=== PATIENT | female | born 1995 | race African-American/Black ===

== ENCOUNTER 2018-02-28 09:51 | Emergency (ER) | payer OTHER ==
[2018-02-28 10:31] LABS: Urine Blood NEGATIVE (NEG); Urine Glucose NEGATIVE (NEG); Urine Protein NEGATIVE (NEG); Urine Specific Gravity >1.030 (1.005-1.030)
[2018-02-28 11:05] LABS: Absolute Lymphocytes (CBC) 1.8 K/uL (0.7-4.9); Absolute Monocytes 0.3 K/uL (0.1-1.3); Absolute Neutrophil 2.3 K/uL (1.8-8.0); Basophils % 0.8 % (0-1.3); Eosinophils % 1.3 % (0-4.4); Hematocrit 37.7 % (36.0-45.0); Lymphocytes % 39.8 % (15.3-44.8); MCH 25.4 pg (27.0-35.0); MCV 75.9 fL (80-100); MPV 8.5 fL (7.6-11.3); Monocytes % 6.8 % (3.3-12.3); RBC Red Blood Cell Count 4.97 M/uL (3.86-4.86)
[2018-02-28 11:21] LABS: ALT/SGPT 16 U/L (12-78); AST/SGOT 12 U/L (15-37); Albumin 3.8 g/dL (3.4-5.0); Alkaline Phosphatase 44 U/L (45-117); BUN Blood Urea Nitrogen 7 mg/dL (7-18); Bicarbonate 24 mmol/L (21-32); Bilirubin Direct 0.1 mg/dL (0-0.2); Bilirubin Total 0.3 mg/dL (0.2-1.0); Glucose Level 86 mg/dL (74-106); Lipase 104 U/L (73-393); Potassium 3.8 mmol/L (3.5-5.1); Protein, Total 7.8 g/dL (6.4-8.2); Sodium Level 140 mmol/L (136-145)
--- NOTE | 2018-02-28 11:52 | RAD REPORT ---
EXAM DESCRIPTION: US - Abdomen Exam Limited - 02/28/2018 11:44 am CLINICAL HISTORY: Abd rosibel COMPARISON: No comparisons FINDINGS: The gallbladder demonstrates no gallstones. No pericholecystic fluid or gallbladder wall t hickening. The common bile duct is normal measuring 2 mm. The liver demonstrates no findings of intrahepatic biliary dilatation. IMPRESSION: Unremarkable examination.
[2018-02-28 11:56] LABS: Urine RBC NONE SEEN /HPF (NONE SEEN)
[2018-02-28 11:57] LABS: Urine Bacteria <20 /HPF (<20)
[2018-02-28 11:58] LABS: Urine Culture Reflex Order REFLEXED
--- NOTE | 2018-02-28 12:27 | EDPHYS ---
Physician Documentation [facility] Name: Margaret Lara Age: 22 yrs Sex: Female : 1995 Arrival Date: 02/28/2018 Time: 09:54 Bed 17 Private MD: CHELSIE DEL ROSARIO ED Physician Dylon Fonseca HPI: 02/28 10:30 This 22 yrs old Black Female presents to ER via Ambulatory with complaints of Abdominal cp Pain, Back Pain. 10:30 The patient presents with abdominal pain mid and upper abdomen. cp 10:30 Onset: The symptoms/episode began/occurred 3 week(s) ago. The symptoms do not radiate. cp Associated signs and symptoms: Pertinent positives: upper and mid back pain, Pertinent negatives: anorexia, blood in stools, chest pain, constipation, dysuria, fever, headache, vomiting. 10:30 The symptoms are described as waxing/waning. Modifying factors: The symptoms are cp alleviated by nothing, the symptoms are aggravated by nothing. Severity of pain: in the emergency department the pain has improved moderately. 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 - Social history:: Smoking status: Patient/guardian denies using tobacco, Patient uses street drugs, marijuana. - Ebola Screening: : No symptoms or risks identified at this time. ROS: 10:35 Constitutional: Negative for body aches, chills, fever, poor PO intake. cp 10:35 Eyes: Negative for injury, pain, redness, and discharge. cp 10:35 ENT: Negative for drainage from ear(s), ear pain, sore throat, difficulty swallowing, difficulty handling secretions. 10:35 Neck: Negative for pain with movement, pain at rest, stiffness, tenderness. 10:35 Cardiovascular: Negative for chest pain, edema, palpitations. 10:35 Respiratory: Negative for cough, shortness of breath, wheezing. 10:35 Abdomen/GI: Positive for abdominal pain, nausea, diarrhea, Negative for vomiting, anorexia, black/tarry stool, rectal bleeding. 10:35 Back: Positive for pain at rest, of the left subscapular area, right subscapular area and mid back area, Negative for injury or acute deformity, decreased range of motion. 10:35 : Negative for urinary symptoms. 10:35 Skin: Negative for cellulitis, rash. 10:35 Neuro: Negative for altered mental status, headache, numbness, weakness. 10:35 All other systems are negative. Exam: 10:45 Constitutional: The patient appears in no acute distress, alert, awake, non-toxic, well cp developed, well nourished. 10:45 Head/Face: Normocephalic, atraumatic. Eyes: Pupils equal round and reactive to light, cp extra-ocular motions intact. Lids and lashes normal. Conjunctiva and sclera are non-icteric and not injected. Cornea within normal limits. Periorbital areas with no swelling, redness, or edema. ENT: Nares patent. No nasal discharge, no septal abnormalities noted. Tympanic membranes are normal and external auditory canals are clear. Oropharynx with no redness, swelling, or masses, exudates, or evidence of obstruction, uvula midline. Mucous membranes moist. Neck: Trachea midline, no thyromegaly or masses palpated, and no cervical lymphadenopathy. Supple, full range of motion without nuchal rigidity, or vertebral point tenderness. No Meningismus. Chest/axilla: Normal chest wall appearance and motion. Nontender with no deformity. No lesions are appreciated. Cardiovascular: Regular rate and rhythm with a normal S1 and S2. No gallops, murmurs, or rubs. Normal PMI, no JVD. No pulse deficits. Respiratory: Lungs have equal breath sounds bilaterally, clear to auscultation and percussion. No rales, rhonchi or wheezes noted. No increased work of breathing, no retractions or nasal flaring. 10:45 Abdomen/GI: Inspection: abdomen appears normal, Bowel sounds: active, all quadrants, Palpation: soft, in all quadrants, mild abdominal tenderness, in the umbilical area, right upper quadrant and left upper quadrant, rebound tenderness, is not appreciated, voluntary guarding, is not appreciated, involuntary guarding, is not appreciated. 10:45 Back: pain, that is mild, of the left subscapular area, right subscapular area and mid back area, ROM is normal, Straight leg raises: of both lower extremities does not illicit pain. 10:45 Skin: cellulitis, is not appreciated, no rash present. 10:45 Neuro: Orientation: to person, place \T\ time. Mentation: lucid, able to follow commands, Cerebellar function: is grossly normal, Motor: moves all fours, strength is normal, Sensation: no obvious gross deficits. Vital Signs: 09:59 BP 115 / 76; Pulse 72; Resp 16; Temp 98.3; Pulse Ox 100% ; Weight 71.21 kg; Height 5 jl7 ft. 5 in. (165.10 cm); Pain 2/; 09:59 Body Mass Index 26.13 (71.21 kg, 165.10 cm) jl7 MDM: 10:01 Patient medically screened. cp 10:45 Differential diagnosis: cholecystitis, Cholelithiasis, gastritis, pancreatitis, Peptic cp Ulcer Disease, Perf. Duodenal Ulcer, Pyelonephritis, Ureterolithiasis, urinary tract infection. 12:25 Data reviewed: vital signs, nurses notes, lab test result(s), radiologic studies, cp ultrasound. 12:25 Counseling: I had a detailed discussion with the patient and/or guardian regarding: the cp historical points, exam findings, and any diagnostic results supporting the discharge/admit diagnosis, lab results, radiology results, the need for outpatient follow up, a family practitioner, a fitness trainer, to return to the emergency department if symptoms worsen or persist or if there are any questions or concerns that arise at home. Special discussion: Based on the patient's Hx, exam, and Dx evaluation, there is no indication for emergent surgery or inpatient Tx. It is understood by the patient/guardian that if the Sx's persist or worsen they need to return immediately for re-evaluation. 02/28 10:26 Order name: Urine Dipstick--Ancillary (enter results); Complete Time: 10:37 bd 02/28 11:59 Interpretation: Normal except: UKET 2+; UESTR TRACE. cp 02/28 10:26 Order name: Urine --Ancillary (enter results); Complete Time: 10:37 bd 02/28 10:40 Order name: Basic Metabolic Panel; Complete Time: 11:30 cp 02/28 11:59 Interpretation: Normal except: CL 108. cp 02/28 10:40 Order name: CBC with Diff; Complete Time: 11:30 cp 02/28 10:40 Order name: Creatinine for Radiology; Complete Time: 11:30 cp 02/28 10:40 Order name: Hepatic Function; Complete Time: 11:30 cp 02/28 10:40 Order name: Lipase; Complete Time: 11:30 cp 02/28 10:40 Order name: IV Saline Lock; Complete Time: 11:03 cp 02/28 10:40 Order name: Labs collected and sent; Complete Time: 11:04 cp 02/28 11:31 Order name: Urine Microscopic Only; Complete Time: 11:59 bd 02/28 11:59 Interpretation: Normal except: SQEPI 5-10. cp 02/28 11:31 Order name: US Abdomen Limited: RUQ/epigastric area; Complete Time: 11:57 cp 02/28 11:57 Interpretation: Report reviewed. cp 02/28 11:31 Order name: NPO; Complete Time: 11:45 cp 02/28 11:59 Order name: Urine Culture EDMS Administered Medications: No medications were administered Disposition: 02/28/18 12:26 Discharged to Home. Impression: Unspecified abdominal pain, Back Pain. - Condition is Stable. - Discharge Instructions: Abdominal Pain, Adult, Back Pain, Adult. - Prescriptions for Ibuprofen 800 mg Oral Tablet - take 1 tablet by ORAL route every 8 hours As needed take with food; 30 tablet. Pepcid 20 mg Oral Tablet - take 1 tablet by ORAL route every 12 hours for 10 days; 20 tablet. - Work release form, Medication Reconciliation Form, Thank You Letter, Antibiotic Education, Prescription Opioid Use form. - Follow up: Jarrod Duran MD; When: 1 - 2 days; Reason: abdominal pain. - Problem is new. - Symptoms have improved. Addendum: 03/03/2018 06:36 Co-signature as Attending Physician, Dylon Fonseca MD I agree with the assessment and c acosta plan of care. Signatures: Dispatcher [employer] EDMS Deepak Byrd RN RN sg Anderson, Corey, MD MD cha Page, Corey, PA PA cp Leal, Jahala RN RN jl7 Corrections: (The following items were deleted from the chart) 02/28 12:44 12:26 02/28/2018 12:26 Discharged to Home. Impression: Unspecified abdominal pain; Back sg Pain. Condition is Stable. Forms are Medication Reconciliation Form, Thank You Letter, Antibiotic Education, Prescription Opioid Use. Follow up: Jarrod Duran; When: 1 - 2 days; Reason: abdominal pain. Problem is new. Symptoms have improved. cp 03/01 11:43 10:45 Constitutional: The patient appears in no acute distress, alert, awake, cp non-toxic, well developed, well nourished, cp 11:44 10:30 Eyes: Periorbital structures: appear normal, Conjunctiva: normal, no exudate, no cp injection, Sclera: no appreciated abnormality, Lids and lashes: appear normal, bilaterally, cp 11:44 10:30 ENT: External ear(s): are unremarkable, Ear canal(s): are normal, clear, TM's: cp dullness, bilaterally, Nose: is normal, Mouth: Lips: moist, Oral mucosa: pink and intact, moist, Posterior pharynx: Airway: no evidence of obstruction, patent, Tonsils: are normal in appearance, Uvula: midline, swelling, is not appreciated, erythema, is not appreciated, exudate, is not appreciated, Voice: is normal, cp 11:44 10:30 Neck: ROM/movement: is normal, is supple, without pain, no range of motions cp limitations, no meningismus, no nuchal rigidity, cp 11:44 10:30 Chest/axilla: Inspection: normal, Palpation: is normal, no crepitus, no cp tenderness, cp 11:44 10:30 Respiratory: the patient does not display signs of respiratory distress, cp Respirations: normal, no use of accessory muscles, no retractions, no splinting, no tachypnea, labored breathing, is not present, Breath sounds: are clear throughout, no decreased breath sounds, no stridor, no wheezing, cp 11:44 10:30 Abdomen/GI: Inspection: abdomen appears normal, Bowel sounds: active, all cp quadrants, Palpation: soft, in all quadrants, mild abdominal tenderness, in the umbilical area, right upper quadrant and left upper quadrant, rebound tenderness, is not appreciated, involuntary guarding, is not appreciated, cp 11:53 10:30 Constitutional: The patient appears in no acute distress, alert, awake, cp comfortable, non-toxic, well developed, well nourished, cp 11:53 10:30 Head/Face: Normocephalic, atraumatic. cp cp :53 10:30 Cardiovascular: Rate: normal, Rhythm: regular, cp cp : 10:30 Back: pain, that is mild, of the left subscapular area, right subscapular area cp and mid back area, ROM is normal, Straight leg raises: of both lower extremities does not illicit pain, cp : 10:30 Skin: cellulitis, is not appreciated, no rash present. cp cp :53 10:30 Neuro: Orientation: to person, place \T\ time. Mentation: is normal, Cerebellar cp function: is grossly normal, Motor: moves all fours, strength is normal, Sensation: is normal, cp
--- NOTE | 2018-02-28 12:27 | ER ---
Nurse's Notes [facility] Name: Margaret Lara Age: 22 yrs Sex: Female : 1995 Arrival Date: 02/28/2018 Time: 09:54 Bed 17 Private MD: CHELSIE DEL ROSARIO Diagnosis: Unspecified abdominal pain;Back Pain Presentation: 02/28 09:57 Presenting complaint: Patient states: Mid back pain x 1.5 months and upper abdominal jl7 pain x 3 weeks, c/o nausea and diarrhea this morning. Transition of care: patient was not received from another setting of care. Onset of symptoms was January 30, 2018. Risk Assessment: Do you want to hurt yourself or someone else? Patient reports no desire to harm self or others. Initial Sepsis Screen: Does the patient meet any 2 criteria? No. Patient's initial sepsis screen is negative. Does the patient have a suspected source of infection? No. Patient's initial sepsis screen is negative. Care prior to arrival: None. 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 - Social history:: Smoking status: Patient/guardian denies using tobacco, Patient uses street drugs, marijuana. - Ebola Screening: : No symptoms or risks identified at this time. Screenin:05 Abuse screen: Denies threats or abuse. Denies injuries from another. Nutritional sg screening: No deficits noted. Tuberculosis screening: No symptoms or risk factors identified. Never had TB. Fall Risk None identified. Assessment: 10:05 General: Appears in no apparent distress. comfortable, well groomed, well developed, sg well nourished, Behavior is calm, cooperative, appropriate for age. Pain: Complains of pain in back, right lower quadrant and left lower quadrant Quality of pain is described as aching, sharp. Neuro: No deficits noted. Cardiovascular: Patient's skin is warm and dry. Chest pain is denied. Respiratory: Respiratory effort is even, unlabored, Respiratory pattern is regular, symmetrical. GI: Abdomen is round non-distended, Bowel sounds present X 4 quads. Abd is soft and non tender X 4 quads. Reports lower abdominal pain, nausea. : No signs and/or symptoms were reported regarding the genitourinary system. EENT: No signs and/or symptoms were reported regarding the EENT system. Derm: Skin is normal, Skin temperature is warm. Musculoskeletal: No signs and/or symptoms reported regarding the musculoskeletal system. Vital Signs: 09:59 BP 115 / 76; Pulse 72; Resp 16; Temp 98.3; Pulse Ox 100% ; Weight 71.21 kg; Height 5 jl7 ft. 5 in. (165.10 cm); Pain 2/10; 09:59 Body Mass Index 26.13 (71.21 kg, 165.10 cm) jl7 ED Course: 09:54 Patient arrived in ED. sb2 09:55 CHELSIE DEL ROSARIO is Private Physician. sb2 09:58 Triage completed. jl7 09:59 Arm band placed on right wrist. Patient placed in an exam room, on a stretcher. jl7 10:01 Deepak Byrd, RN is Primary Nurse. sg 10:01 Dylon Marie PA is PHCP. cp 10:01 Dylon Fonseca MD is Attending Physician. cp 11:00 No provider procedures requiring assistance completed. Initial lab(s) drawn, by in, sg sent to lab. Urine collected: clean catch specimen, clear. Inserted saline lock: 22 gauge in right antecubital area, using aseptic technique. Blood collected. 11:34 Patient taken to ultrasound. lc3 11:44 US Abdomen Limited: RUQ/epigastric area In Process Unspecified. EDMS 12:25 Jarrod Duran MD is Referral Physician. cp Administered Medications: No medications were administered Outcome: 12:26 Discharge ordered by . cp 12:44 Patient left the ED. sg Signatures: Dispatcher [employer] EDMS Deepak Byrd RN RN sg Page, Corey, PA PA cp Nirav Chiang Jahala, RN RN jl7 Zoe Rojo sb2
[2018-02-28 12:49] VITALS: BP 115/76; TEMP 98.3; O2SAT 100
== END 2018-02-28 12:44 | disposition home or self-care (01) ==
LOC: ER 09:51
DX: M54.9 Dorsalgia, unspecified (principal); R10.9 Unspecified abdominal pain; F12.90 Cannabis use, unspecified, uncomplicated; F19.90 Other psychoactive substance use, unspecified, uncomplicated
CPT/HCPCS: 36415; 76705; 80048; 80076; 81003; 81015; 81025; 83690; 85025; 87086; 87088; 99284

== ENCOUNTER 2018-05-12 12:22 | Emergency (ER) | payer OTHER ==
--- NOTE | 2018-05-12 14:11 | ER ---
Nurse's Notes [facility] Name: Margaret Lara Age: 23 yrs Sex: Female : 1995 Arrival Date: 05/12/2018 Time: 12:24 Bed 23 Private MD: Diagnosis: Cough Presentation: 05/12 12:45 Presenting complaint: Patient states: Abdominal bloating and pain this morning, states, ph " I have been seeing a GI doctor but they haven't found anything wrong yet." Pt reports pain in upper abdomen, bloating and nausea, denies fever, V/D. Transition of care: patient was not received from another setting of care. Onset of symptoms was May 12, 2018. Risk Assessment: Do you want to hurt yourself or someone else? Patient reports no desire to harm self or others. Initial Sepsis Screen: Does the patient meet any 2 criteria? No. Patient's initial sepsis screen is negative. Does the patient have a suspected source of infection? No. Patient's initial sepsis screen is negative. Care prior to arrival: None. 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 - Social history:: Smoking status: Patient/guardian denies using tobacco. - Ebola Screening: : No symptoms or risks identified at this time. Screenin:04 Abuse screen: Denies threats or abuse. Denies injuries from another. Nutritional sg screening: No deficits noted. Tuberculosis screening: No symptoms or risk factors identified. Never had TB. Fall Risk None identified. Assessment: 13:03 General: Appears in no apparent distress. comfortable, well groomed, well developed, sg well nourished, Behavior is calm, cooperative, appropriate for age. Pain: Complains of pain in abdomen Quality of pain is described as aching, sharp, stabbing. Neuro: No deficits noted. Cardiovascular: No deficits noted. Patient's skin is warm and dry. Chest pain is denied. Respiratory: Reports cough that is dry, Airway is patent Respiratory effort is even, unlabored, Respiratory pattern is regular, symmetrical. GI: Abdomen is flat, non-distended, Bowel sounds present X 4 quads. Abd is soft and non tender X 4 quads. Reports lower abdominal pain, upper abdominal pain. : No signs and/or symptoms were reported regarding the genitourinary system. EENT: No signs and/or symptoms were reported regarding the EENT system. Derm: Skin is pink, warm \\T\\ dry. Musculoskeletal: No signs and/or symptoms reported regarding the musculoskeletal system. Vital Signs: 12:48 BP 136 / 68; Pulse 77; Resp 18; Temp 98.1; Pulse Ox 100% on R/A; Weight 68.04 kg; ph Height 5 ft. 5 in. (165.10 cm); Pain 5/10; 14:06 BP 118 / 83; Pulse 78 MON; Resp 17; Pulse Ox 100% on R/A; sg 12:48 Body Mass Index 24.96 (68.04 kg, 165.10 cm) ph ED Course: 12:24 Patient arrived in ED. rg4 12:47 Triage completed. 12:49 Arm band placed on Patient placed in waiting room, Patient notified of wait time. 12:52 Dylon Marie PA is PHCP. 12:52 Adam Mcnulty MD is Attending Physician. cp 13:00 Patient has correct armband on for positive identification. Bed in low position. Call light in reach. Side rails up X2. Pulse ox on. NIBP on. 13:01 Deepak Byrd, RN is Primary Nurse. sg 13:05 No provider procedures requiring assistance completed. awaiting a urine specimen at this time. 14:15 Patient did not have IV access during this emergency room visit. Administered Medications: No medications were administered Outcome: 14:10 Discharge ordered by MD. cp 14:15 Discharged to home ambulatory, with friend. sg 14:15 Condition: good 14:15 Discharge instructions given to patient, Instructed on discharge instructions, follow up and referral plans. medication usage, safety practices, Demonstrated understanding of instructions, follow-up care, medications, Prescriptions given X 1. 14:18 Patient left the ED. iw Signatures: Deepak Byrd RN RN Christy Ozuna RN RN Deirdre Young RN RN Dylon Marie PA PA Brianna Newell rg4 Corrections: (The following items were deleted from the chart) 19:47 13:03 Respiratory: Airway is patent Respiratory effort is even, unlabored, Respiratory sg pattern is regular, symmetrical, sg
--- NOTE | 2018-05-12 14:11 | EDPHYS ---
Physician Documentation [facility] Name: Margaret Lara Age: 23 yrs Sex: Female : 1995 Arrival Date: 05/12/2018 Time: 12:24 Bed 23 Private MD: ED Physician Adam Mcnulty HPI: 05/12 13:30 This 23 yrs old Black Female presents to ER via Ambulatory with complaints of Abdominal cp Swelling, Abdominal Pain. 13:30 The patient presents with abdominal distention that is diffuse. Onset: The cp symptoms/episode began/occurred this morning, now resolved. 13:30 Associated signs and symptoms: Pertinent positives: cough, sore throat, Pertinent cp negatives: nausea and vomiting, anorexia, blood in stools, constipation, diarrhea, fever. 13:30 Severity of pain: in the emergency department the pain has resolved and did so earlier cp today. 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 - Social history:: Smoking status: Patient/guardian denies using tobacco. - Ebola Screening: : No symptoms or risks identified at this time. ROS: 13:35 Constitutional: Negative for body aches, chills, fever, poor PO intake. cp 13:35 Eyes: Negative for injury, pain, redness, and discharge. cp 13:35 ENT: Positive for sore throat, Negative for drainage from ear(s), ear pain, difficulty swallowing, difficulty handling secretions. 13:35 Cardiovascular: Negative for chest pain, palpitations. 13:35 Respiratory: Positive for cough, with no reported sputum, Negative for shortness of breath, wheezing. 13:35 Abdomen/GI: Negative for abdominal pain, nausea, vomiting, and diarrhea, constipation, anorexia, dysphagia, black/tarry stool, rectal bleeding. 13:35 Back: Negative for pain at rest, pain with movement, radiated pain. 13:35 : Negative for urinary symptoms. 13:35 Skin: Negative for cellulitis, rash. 13:35 Neuro: Negative for altered mental status, headache, weakness. 13:35 All other systems are negative. Exam: 13:42 Constitutional: The patient appears in no acute distress, alert, awake, non-toxic, well cp developed, well nourished. 13:42 Head/Face: Normocephalic, atraumatic. cp 13:42 Eyes: Periorbital structures: appear normal, Conjunctiva: normal, no exudate, no injection, Sclera: no appreciated abnormality, Lids and lashes: appear normal, bilaterally. 13:42 ENT: External ear(s): are unremarkable, Ear canal(s): are normal, clear, TM's: are normal, no evidence of bulging, no erythema, Nose: is normal, Mouth: Lips: moist, Oral mucosa: pink and intact, moist, Posterior pharynx: is normal, airway is patent, no erythema, no exudate. 13:42 Chest/axilla: Inspection: normal, Palpation: is normal, no crepitus, no tenderness. 13:42 Cardiovascular: Rate: normal, Rhythm: regular, Heart sounds: murmur, not appreciated, Edema: is not appreciated. 13:42 Respiratory: the patient does not display signs of respiratory distress, Respirations: normal, no use of accessory muscles, no retractions, no splinting, no tachypnea, labored breathing, is not present, Breath sounds: are clear throughout, no decreased breath sounds, no stridor, no wheezing. 13:42 Abdomen/GI: Inspection: abdomen appears normal, Bowel sounds: active, all quadrants, Palpation: abdomen is soft and non-tender, in all quadrants, rebound tenderness, is not appreciated, voluntary guarding, is not appreciated, involuntary guarding, is not appreciated. 13:42 Back: pain, is absent, ROM is normal. 13:42 Skin: cellulitis, is not appreciated, no rash present. 13:42 Neuro: Orientation: to person, place \T\ time. Mentation: is normal, Cerebellar function: is grossly normal, Motor: moves all fours, strength is normal. Vital Signs: 12:48 BP 136 / 68; Pulse 77; Resp 18; Temp 98.1; Pulse Ox 100% on R/A; Weight 68.04 kg; ph Height 5 ft. 5 in. (165.10 cm); Pain 5/10; 14:06 BP 118 / 83; Pulse 78 MON; Resp 17; Pulse Ox 100% on R/A; sg 12:48 Body Mass Index 24.96 (68.04 kg, 165.10 cm) ph MDM: 12:52 Patient medically screened. cp 13:30 Differential diagnosis: cholecystitis, Cholelithiasis, gastritis, non-specific abd cp pain, Pyelonephritis, urinary tract infection, pneumonia, strep throat, influenza, . 14:10 Data reviewed: vital signs, nurses notes, lab test result(s), and as a result, I will cp discharge patient. 14:10 Counseling: I had a detailed discussion with the patient and/or guardian regarding: the cp historical points, exam findings, and any diagnostic results supporting the discharge/admit diagnosis, lab results, to return to the emergency department if symptoms worsen or persist or if there are any questions or concerns that arise at home. 05/12 13:30 Order name: Influenza Screen (a \T\ B); Complete Time: 14:07 cp 05/12 13:30 Order name: Strep; Complete Time: 14:07 cp 05/12 12:52 Order name: Urine Dipstick-Ancillary (obtain specimen); Complete Time: 13:45 cp 05/12 13:52 Order name: Urine Dipstick--Ancillary (enter results) bd 05/12 13:52 Order name: Urine --Ancillary (enter results) 05/12 14:02 Order name: Throat Culture EDIL 05/12 12:52 Order name: Urine Test (obtain specimen); Complete Time: 13:45 cp Administered Medications: No medications were administered Disposition: 05/13 09:23 Co-signature as Attending Physician, Adam Mcnulty MD. Disposition: 05/12/18 14:10 Discharged to Home. Impression: Cough. - Condition is Stable. - Discharge Instructions: Cough, Adult. - Prescriptions for Tessalon Perles 100 mg Oral Capsule - take 1 capsule by ORAL route every 8 hours As needed; 15 capsule. - Medication Reconciliation Form, Thank You Letter, Antibiotic Education, Prescription Opioid Use, Work release form form. - Follow up: Private Physician; When: 2 - 3 days; Reason: Recheck today's complaints. - Problem is new. - Symptoms have improved. Signatures: Dispatcher [employer] EDIL Christy Ozuna RN RN Deirdre Young RN RN ph Dylon Marie PA PA cp Starr, Gregory, MD MD Corrections: (The following items were deleted from the chart) 05/12 14:18 14:10 05/12/2018 14:10 Discharged to Home. Impression: Cough. Condition is Stable. iw Forms are Medication Reconciliation Form, Thank You Letter, Antibiotic Education, Prescription Opioid Use. Follow up: Private Physician; When: 2 - 3 days; Reason: Recheck today's complaints. Problem is new. Symptoms have improved. cp
[2018-05-12 14:23] VITALS: TEMP 98.1; O2SAT 100
[2018-05-12 14:24] VITALS: BP 118/83
[2018-05-12 15:00] LABS: Urine Blood TRACE (NEG); Urine Glucose NEGATIVE (NEG); Urine Protein NEGATIVE (NEG); Urine Specific Gravity 1.015 (1.005-1.030); Urine pH 6.5 (5.0-7.0)
== END 2018-05-12 14:18 | disposition home or self-care (01) ==
LOC: ER 12:22
DX: R05 Cough (principal)
CPT/HCPCS: 81003; 81025; 87070; 87081; 87804; 99283

== ENCOUNTER 2018-07-31 18:25 | Emergency (ER) | payer OTHER ==
[2018-07-31 19:58] LABS: Urine Appearance TURBID; Urine Blood NEGATIVE (NEG); Urine Color YELLOW; Urine Glucose NEGATIVE (NEG); Urine Protein TRACE (NEG); Urine Specific Gravity >=1.030 (1.005-1.030); Urine Urobilinogen 0.2 mg/dL (0.2-1.0)
[2018-07-31 20:24] LABS: Urine Bilirubin NEGATIVE (NEG); Urine Microscopic Reflex ORDER UMIC
[2018-07-31 20:43] LABS: Absolute Lymphocytes (CBC) 0.3 K/uL (0.7-4.9); Absolute Monocytes 0.2 K/uL (0.1-1.3); Absolute Neutrophil 7.1 K/uL (1.8-8.0); Basophils % 0.4 % (0-1.3); Eosinophils % 0.1 % (0-4.4); Hematocrit 39.8 % (36.0-45.0); Lymphocytes % 4.1 % (15.3-44.8); MPV 8.9 fL (7.6-11.3); Monocytes % 2.9 % (3.3-12.3); RBC Red Blood Cell Count 5.14 M/uL (3.86-4.86)
[2018-07-31 20:54] LABS: Urine Bacteria <20 /HPF (<20); Urine Culture Reflex Order NOT NEEDED; Urine RBC <5 /HPF (NONE SEEN)
[2018-07-31 20:55] LABS: Urine Amorphous Sediment 4+ /HPF (NONE SEEN)
[2018-07-31 21:05] LABS: ALT/SGPT 20 U/L (12-78); AST/SGOT 15 U/L (15-37); Albumin 4.2 g/dL (3.4-5.0); Alkaline Phosphatase 49 U/L (45-117); BUN Blood Urea Nitrogen 12 mg/dL (7-18); Bicarbonate 23 mmol/L (21-32); Bilirubin Direct 0.3 mg/dL (0-0.2); Glucose Level 87 mg/dL (74-106); Lipase 53 U/L (73-393); Potassium 3.7 mmol/L (3.5-5.1); Protein, Total 7.9 g/dL (6.4-8.2); Sodium Level 139 mmol/L (136-145)
[2018-07-31 21:25] LABS: Blood Morphology Comment NOT SEEN (NOT SEEN); Platelet Estimate ADEQ; Urine White Blood Cell Casts OK
[2018-07-31] MEDS ORDERED: KETOROLAC 30 MG/ML INJ ONE (22:41)
--- NOTE | 2018-07-31 23:45 | EDPHYS ---
Physician Documentation [facility] Name: Margaret Lara Age: 23 yrs Sex: Female : 1995 Arrival Date: 07/31/2018 Time: 18:26 Bed 26 Private MD: CHELSIE DEL ROSARIO ED Physician Edu Elizondo HPI: 07/31 20:07 This 23 yrs old Black Female presents to ER via Ambulatory with complaints of Abdominal tw4 Pain, Vomiting. 20:07 The patient presents to the emergency department with nausea, vomiting, diarrhea. tw4 Onset: The symptoms/episode began/occurred yesterday. The symptoms are aggravated by movement, pressure, The symptoms are alleviated by remaining still. Associated signs and symptoms: The patient has no apparent associated signs or symptoms. The patient has not experienced similar symptoms in the past. 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 - Social history:: Smoking status: Patient/guardian denies using tobacco. - Ebola Screening: : No symptoms or risks identified at this time. ROS: 20:07 Constitutional: Negative for fever, chills, and weight loss, Eyes: Negative for injury, tw4 pain, redness, and discharge, Cardiovascular: Negative for chest pain, palpitations, and edema, Respiratory: Negative for shortness of breath, cough, wheezing, and pleuritic chest pain, Back: Negative for injury and pain, MS/Extremity: Negative for injury and deformity, Skin: Negative for injury, rash, and discoloration. 20:07 Abdomen/GI: Positive for abdominal pain, nausea and vomiting, nausea, vomiting, and diarrhea, nausea, vomiting. Exam: 20:07 Constitutional: This is a well developed, well nourished patient who is awake, alert, tw4 and in no acute distress. Head/Face: Normocephalic, atraumatic. Chest/axilla: Normal chest wall appearance and motion. Nontender with no deformity. No lesions are appreciated. Cardiovascular: Regular rate and rhythm with a normal S1 and S2. No gallops, murmurs, or rubs. Normal PMI, no JVD. No pulse deficits. Respiratory: Lungs have equal breath sounds bilaterally, clear to auscultation and percussion. No rales, rhonchi or wheezes noted. No increased work of breathing, no retractions or nasal flaring. 20:07 Skin: Warm, dry with normal turgor. Normal color with no rashes, no lesions, and no evidence of cellulitis. MS/ Extremity: Pulses equal, no cyanosis. Neurovascular intact. Full, normal range of motion. Neuro: Awake and alert, GCS 15, oriented to person, place, time, and situation. Cranial nerves II-XII grossly intact. Motor strength 5/5 in all extremities. Sensory grossly intact. Cerebellar exam normal. Normal gait. 20:07 Abdomen/GI: Inspection: abdomen appears normal, Bowel sounds: normal, Palpation: moderate abdominal tenderness, in the right lower quadrant and left lower quadrant. Vital Signs: 18:42 BP 121 / 77; Pulse 91; Resp 16; Temp 99.1; Pulse Ox 100% ; Weight 68.04 kg; Height 5 sv ft. 5 in. (165.10 cm); Pain 5/10; 19:30 BP 117 / 79; Pulse 82; Resp 19; Pulse Ox 100% on R/A; ca1 20:30 BP 118 / 80; Pulse 90; Resp 18; Pulse Ox 100% on R/A; ca1 21:12 BP 111 / 78; Pulse 84; Resp 19; Pulse Ox 100% on R/A; ca1 21:44 BP 130 / 87; Pulse 80; Resp 18; Pulse Ox 100% on R/A; mg2 22:15 BP 125 / 82; Pulse 82; Resp 18; Pulse Ox 100% on R/A; ca1 23:30 BP 128 / 81; Pulse 85; Resp 19; Pulse Ox 100% on R/A; ca1 18:42 Body Mass Index 24.96 (68.04 kg, 165.10 cm) sv MDM: 19:27 Patient medically screened. tw4 08/01 07:03 Differential diagnosis: Nonspecific abd pain, gastritis, cholecystitis, pancreatitis. tw4 Data reviewed: vital signs, nurses notes. Data interpreted: Pulse oximetry: Interpretation: normal. Test interpretation: by ED physician or midlevel provider: ECG. Counseling: I had a detailed discussion with the patient and/or guardian regarding: the historical points, exam findings, and any diagnostic results supporting the discharge/admit diagnosis. Medication response: Toradol relieved patient's pain. The symptoms have resolved. Response to treatment: and as a result, I will discharge patient. Special discussion: I discussed with the patient/guardian in detail that at this point there is no indication for admission to the hospital. It is understood, however, that if the symptoms persist or worsen the patient needs to return immediately for re-evaluation. 07/31 19:28 Order name: Urinalysis; Complete Time: 22:18 [facility] 07/31 22:18 Interpretation: Normal except: UKET 1+. tw 07/31 20:06 Order name: Basic Metabolic Panel; Complete Time: 22:17 [facility] 07/31 22:17 Interpretation: Normal except: CL 110. [facility] 07/31 20:06 Order name: CBC with Diff; Complete Time: 22:17 [facility] 07/31 22:17 Interpretation: Normal except: RBC 5.14; MCH 25.7; MCV 77.3. [facility] 07/31 20:06 Order name: Creatinine for Radiology; Complete Time: 22:18 [facility] 07/31 22:19 Interpretation: Within normal limits: CRE 0.82; GFR > 90. tw 07/31 20:06 Order name: Hepatic Function; Complete Time: 23:31 [facility] 07/31 23:31 Interpretation: Normal except: BILID 0.3; GLOB 3.7. tw 07/31 20:06 Order name: Lipase; Complete Time: 22:18 [facility] 07/31 22:18 Interpretation: Within normal limits: LIP 53. [facility] 07/31 19:28 Order name: Urine Dipstick-Ancillary (obtain specimen); Complete Time: 19:34 tw4 07/31 20:06 Order name: IV Saline Lock; Complete Time: 20:43 tw 07/31 20:06 Order name: Labs collected and sent; Complete Time: 20:43 [facility] 07/31 20:26 Order name: Transvaginal Study Probe EDMI 07/31 20:30 Order name: Urine Microscopic Only; Complete Time: 22:18 EDMS 07/31 22:18 Interpretation: Within normal limits: AMORPH 4+. tw4 07/31 21:25 Order name: CBC Smear Scan; Complete Time: 23:31 EDMS Administered Medications: 07/31 22:33 Drug: TORadol 30 mg Route: IVP; Site: right antecubital; ca1 23:40 Follow up: Response: No adverse reaction; Pain is decreased ca1 Disposition: 07/31/18 23:44 Discharged to Home. Impression: Vomiting, unspecified, Diarrhea, unspecified. - Condition is Stable. - Discharge Instructions: Diarrhea, Adult, Nausea and Vomiting, Adult. - Prescriptions for Zofran 4 mg Oral Tablet - take 1 tablet by ORAL route every 12 hours As needed; 6 tablet. Lomotil 2.5- 0.025 mg Oral Tablet - take 2 tablet by ORAL route once daily As needed; 20 tablet. - Medication Reconciliation Form, Thank You Letter, Antibiotic Education, Prescription Opioid Use, Work release form form. - Follow up: CHELSIE DEL ROSARIO; When: Upon discharge from the Emergency Department; Reason: If symptoms return, Recheck today's complaints, Continuance of care. - Problem is new. - Symptoms have improved. Signatures: Dispatcher [employer] EDMI Kristin Kirk, RN RN Edu Elizondo MD MD tw4 Marisol Valentin RN RN ca1 Corrections: (The following items were deleted from the chart) 20:26 20:07 Pelvis Complete+US.RAD.BRZ ordered. [facility] EDMI 23:52 23:44 07/31/2018 23:44 Discharged to Home. Impression: Vomiting, unspecified; Diarrhea, ca1 unspecified. Condition is Stable. Forms are Medication Reconciliation Form, Thank You Letter, Antibiotic Education, Prescription Opioid Use. Follow up: CHELSIE DEL ROSARIO; When: Upon discharge from the Emergency Department; Reason: If symptoms return, Recheck today's complaints, Continuance of care. Problem is new. Symptoms have improved. tw4
--- NOTE | 2018-07-31 23:45 | ER ---
Nurse's Notes [facility] Name: Margaret Lara Age: 23 yrs Sex: Female : 1995 Arrival Date: 07/31/2018 Time: 18:26 Bed 26 Private MD: CHELSIE DEL ROSARIO Diagnosis: Vomiting, unspecified;Diarrhea, unspecified Presentation: 07/31 18:41 Presenting complaint: Patient states: vomiting, chills, frontal headache, diffuse abd sv pain/cramping x 2 weeks. Transition of care: patient was not received from another setting of care. Onset of symptoms was July 17, 2018. Care prior to arrival: None. 18:41 Method Of Arrival: Ambulatory sv 18:41 Acuity: MARY 3 sv 19:30 Risk Assessment: Do you want to hurt yourself or someone else? Patient reports no ca1 desire to harm self or others. 19:30 Initial Sepsis Screen: Does the patient meet any 2 criteria? No. Patient's initial ca1 sepsis screen is negative. Does the patient have a suspected source of infection? No. Patient's initial sepsis screen is negative. Triage Assessment: 18:43 General: Appears in no apparent distress. uncomfortable, slender, Behavior is calm, sv cooperative, appropriate for age. Pain: Complains of pain in right lower quadrant and left lower quadrant Pain currently is 5 out of 10 on a pain scale. Neuro: Level of Consciousness is awake, alert, obeys commands, Oriented to person, place, time, situation, Moves all extremities. Full function Gait is steady. Respiratory: Respiratory effort is even, unlabored, Respiratory pattern is regular, symmetrical. GI: Reports lower abdominal pain, nausea, vomiting. 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 - Social history:: Smoking status: Patient/guardian denies using tobacco. - Ebola Screening: : No symptoms or risks identified at this time. Screenin:30 Abuse screen: Denies threats or abuse. Denies injuries from another. Nutritional ca1 screening: No deficits noted. Tuberculosis screening: No symptoms or risk factors identified. Fall Risk None identified. Assessment: 19:30 General: Appears in no apparent distress. comfortable, Behavior is calm, cooperative, ca1 appropriate for age. Pain: Complains of pain in abdomen and left lower quadrant and right lower quadrant Pain radiates to back Pain currently is 5 out of 10 on a pain scale. at worst was 10 out of 10 on a pain scale. Pain began 2 weeks ago Is intermittent. Neuro: Level of Consciousness is awake, alert, obeys commands, Oriented to person, place, time, situation. Cardiovascular: Heart tones S1 S2 present Capillary refill < 3 seconds Patient's skin is warm and dry. Respiratory: Airway is patent Respiratory effort is even, unlabored, Respiratory pattern is regular, symmetrical, Breath sounds are clear bilaterally. GI: Abdomen is flat, non-distended, Bowel sounds present X 4 quads. Abd is soft and non tender X 4 quads. Reports diarrhea, nausea, vomiting. : No deficits noted. No signs and/or symptoms were reported regarding the genitourinary system. EENT: No deficits noted. No signs and/or symptoms were reported regarding the EENT system. Derm: Skin is intact, is healthy with good turgor, Skin is pink, warm \T\ dry. Musculoskeletal: Circulation, motion, and sensation intact. Capillary refill < 3 seconds. 20:30 Reassessment: Patient appears in no apparent distress at this time. Patient and/or ca1 family updated on plan of care and expected duration. Pain level reassessed. Patient is alert, oriented x 3, equal unlabored respirations, skin warm/dry/pink. 21:12 Reassessment: Patient appears in no apparent distress at this time. Patient is alert, ca1 oriented x 3, equal unlabored respirations, skin warm/dry/pink. Pt from US. 22:15 Reassessment: Patient appears in no apparent distress at this time. Patient is alert, ca1 oriented x 3, equal unlabored respirations, skin warm/dry/pink. 23:30 Reassessment: Patient appears in no apparent distress at this time. Patient is alert, ca1 oriented x 3, equal unlabored respirations, skin warm/dry/pink. Vital Signs: 18:42 BP 121 / 77; Pulse 91; Resp 16; Temp 99.1; Pulse Ox 100% ; Weight 68.04 kg; Height 5 sv ft. 5 in. (165.10 cm); Pain 5/10; 19:30 BP 117 / 79; Pulse 82; Resp 19; Pulse Ox 100% on R/A; ca1 20:30 BP 118 / 80; Pulse 90; Resp 18; Pulse Ox 100% on R/A; ca1 21:12 BP 111 / 78; Pulse 84; Resp 19; Pulse Ox 100% on R/A; ca1 21:44 BP 130 / 87; Pulse 80; Resp 18; Pulse Ox 100% on R/A; mg2 22:15 BP 125 / 82; Pulse 82; Resp 18; Pulse Ox 100% on R/A; ca1 23:30 BP 128 / 81; Pulse 85; Resp 19; Pulse Ox 100% on R/A; ca1 18:42 Body Mass Index 24.96 (68.04 kg, 165.10 cm) sv ED Course: 18:26 Patient arrived in ED. mr 18:27 CHELSIE DEL ROSARIO is Private Physician. mr 18:42 Triage completed. sv 18:43 Arm band placed on. sv 19:27 Edu Elizondo MD is Attending Physician. tw4 19:30 Patient has correct armband on for positive identification. Placed in gown. Bed in low ca1 position. Call light in reach. Side rails up X 1. Pulse ox on. NIBP on. Warm blanket given. 19:31 Marisol Valentin, RN is Primary Nurse. ca1 20:20 Inserted saline lock: 20 gauge in right antecubital area, using aseptic technique. ca1 Blood collected. 20:20 No provider procedures requiring assistance completed. ca1 21:07 Transvaginal Study Probe In Process Unspecified. EDMS 21:46 Patient moved back from ultrasound. jacky 23:44 CHELSIE DEL ROSARIO is Referral Physician. tw4 23:50 IV discontinued, intact, bleeding controlled, No redness/swelling at site. Pressure ca1 dressing applied. Administered Medications: 22:33 Drug: TORadol 30 mg Route: IVP; Site: right antecubital; ca1 23:40 Follow up: Response: No adverse reaction; Pain is decreased ca1 Outcome: 23:44 Discharge ordered by . tw4 23:50 Discharged to home ambulatory. ca1 23:50 Condition: stable 23:50 Discharge instructions given to patient, Instructed on discharge instructions, follow up and referral plans. medication usage, Demonstrated understanding of instructions, follow-up care, medications, Prescriptions given X 2. 23:52 Patient left the ED. ca1 Signatures: Dispatcher [employer] Kristin Rudd RN RN sv Tyshawn, Smitha Palm, Edu Velazquez jd, MD MD tw4 Kashmir Hutton, FRAN RN mg2 Marisol Valentin RN RN ca1 Corrections: (The following items were deleted from the chart) 18:44 18:42 Resp 16bpm; Pulse Ox 100%; Temp 99.1F; 68.04 kg; Height 5 ft. 5 in.; BMI: 24.9; sv Pain 5/10; sv 18:44 18:42 Pulse 91bpm; Resp 16bpm; Pulse Ox 100%; Temp 99.1F; 68.04 kg; Height 5 ft. 5 in.; sv BMI: 24.9; Pain 5/10; sv
[2018-08-01 00:49] VITALS: TEMP 99.1; O2SAT 100
[2018-08-01 00:59] VITALS: BP 128/81
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
== END 2018-07-31 23:52 | disposition home or self-care (01) ==
LOC: ER 18:25
DX: R11.2 Nausea with vomiting, unspecified (principal); R19.7 Diarrhea, unspecified
CPT/HCPCS: 36415; 76830; 80048; 80076; 81003; 81015; 83690; 85025; 96374; 99284

== ENCOUNTER 2018-10-12 16:59 | Emergency (ER) | payer OTHER ==
[2018-10-12 18:40] LABS: Urine Blood NEGATIVE (NEG); Urine Glucose NEGATIVE (NEG); Urine Protein TRACE (NEG); Urine Specific Gravity 1.025 (1.005-1.030); Urine pH 6.5 (5.0-7.0)
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
== END 2018-10-12 20:50 | disposition home or self-care (01) ==
LOC: ER 16:59
DX: R07.9 Chest pain, unspecified (principal); R07.81 Pleurodynia; V49.9XXA Car occupant (driver) (passenger) injured in unspecified traffic accident, initial encounter
CPT/HCPCS: 71045; 81003; 81025; 99284